=== PATIENT | male | born 1960 | race Caucasian/White ===

== ENCOUNTER 2016-10-29 21:21 | Emergency (ER) | payer MEDICARE ==
[2016-10-29] MEDS ORDERED: Acetaminophen/oxyCODONE 325-5 MG Tab PO ONE (22:18)
[2016-10-29] MEDS ORDERED: Amoxicillin 500 MG Cap PO ONE (22:18)
[2016-10-29 23:01] VITALS: BP 140/70
--- NOTE | 2016-10-30 04:08 | ER ---
DATE SEEN: 10/29/2016 TIME SEEN: The patient was seen at 2155 hours. CHIEF COMPLAINT: Right tooth pain (#5). The patient has 3 days increasing discomfort in tooth # 5. PHYSICAL EXAM: Portion of the posterior crown has fractured off. He has significant dentin and enamel destruction of the occlusal surfaces of almost all his teeth. PAST MEDICIAL HISTORY: The patient is a nonsmoker. Has diabetes, hypertension. He is overweight 350 pounds. He is on disability for repetitive stress fractures of both of his feet with fusion, left and right ankles. ALLERGIES: Has serious significant allergies to sweet clover causes headache. Metformin causes a rash. Neoprene causes burning in surfaces of his leg. PAST SURGICAL HISTORY: T and A, plus fusion of his lower extremity. SOCIAL HISTORY: The patient is accompanied by his . REVIEW OF SYSTEMS: Otherwise, negative. MEDICATIONS: 1. Naproxen. 2. Lisinopril 5 mg daily. 3. Insulin 70/30. 4. Simvastatin. 5. Zocor. 6. Allopurinol 300 mg daily. 7. Gabapentin 1200 mg t.i.d. 8. Spiriva. 9. Respimat 1 inhalation daily. 10.Fluticasone/salmeterol (Advair 250/50) Diskus one inhalation daily. PHYSICAL EXAMINATION: GENERAL: A very large man in mild distress. VITAL SIGNS: Blood pressure 150/78, heart rate 73, respirations 18, oxygen saturation 98%, temperature is 36.5 degrees centigrade. HEENT: PERRLA intact. Pharynx without abnormality. Almost all the occlusal surfaces of the teeth have disrupted enamel with dark brown dentin noted. These teeth are not tender, but percussion of tooth #5 is mildly tender. Proximal surface of the tooth has a fracture. Moderate pain of the gingiva and gentle percussion of tooth. LUNGS: Clear to auscultation. No rales, rhonchi. HEART: S1, S2. No murmur. Regular rate and rhythm. ABDOMEN: Enormous girth. ASSESSMENT: 1. Extensive dental caries. Mostly all his teeth will need to be eventually removed. 2. Periapical abscess, tooth #5. PLAN: Percocet for pain. Prescription provided. Also follow up with a dentist, and ampicillin 875 mg b.i.d. /[id number] YANG/JYOTSNA MTDRenetta
== END 2016-10-29 22:45 | disposition home or self-care (01) ==
LOC: FB.ED 21:21
DX: K04.7 Periapical abscess without sinus (principal); K02.9 Dental caries, unspecified; E11.9 Type 2 diabetes mellitus without complications; I10 Essential (primary) hypertension; Z88.8 Allergy status to other drugs, medicaments and biological substances; Z79.4 Long term (current) use of insulin
CPT/HCPCS: 99282; 99283; A9270-GY